=== PATIENT | male | born 1985 ===

== ENCOUNTER 2017-12-10 23:42 | Emergency (ER) | payer SELFPAY ==
--- NOTE | 2017-12-11 00:33 | ED PDOC ---
HPI: Psych/Substance Abuse Time Seen by Provider: 12/11/17 00:31 Chief Complaint (Nursing): Alcohol Ingestion Chief Complaint (Provider): ALCOHOL INGESTION History Per: Patient (32 Y/O MALE HERE FOR APPARENT ALCOHOL INTOXICATION. [facility] Past Medical History Reviewed: Historical Data, Nursing Documentation, Vital Signs Vital Signs: Last Vital Signs Temp 98.7 F 12/11/17 00:17 Pulse 68 12/11/17 00:17 Resp 16 12/11/17 00:17 BP 126/77 12/11/17 00:17 Pulse Ox 97 12/11/17 00:17 - Family History Family History: States: No Known Family Hx - Allergies Allergies/Adverse Reactions: Allergies Allergy/AdvReac Type Severity Reaction Status Date / Time No Known Allergies Allergy Verified 12/11/17 00:23 Review of Systems ROS Statement: Except As Marked, All Systems Reviewed And Found Negative Physical Exam - Reviewed Nursing Documentation Reviewed: Yes Vital Signs Reviewed: Yes - Physical Exam Appears: Positive for: Well, Non-toxic, No Acute Distress Head Exam: Positive for: ATRAUMATIC, NORMAL INSPECTION, NORMOCEPHALIC Skin: Positive for: Normal Color, Warm, DRY Eye Exam: Positive for: EOMI, Normal appearance, PERRL ENT: Positive for: Normal ENT Inspection Neck: Positive for: Normal, Painless ROM Cardiovascular/Chest: Positive for: Regular Rate, Rhythm Respiratory: Positive for: CNT, Normal Breath Sounds Gastrointestinal/Abdominal: Positive for: Normal Exam, Soft Back: Positive for: Normal Inspection Extremity: Positive for: Normal ROM Neurologic/Psych: Positive for: Alert, Oriented - ECG O2 Sat by Pulse Oximetry: 97 Disposition - Clinical Impression Clinical Impression: Alcohol ingestion - Patient ED Disposition Is Patient to be Admitted: No - Disposition Disposition: Routine/Home Disposition Time: 05:36 Condition: FAIR Instructions: Alcohol Poisoning (DC)
[2017-12-11 06:42] VITALS: BP 128/74; PULSE 72; RESP 17; TEMP 98.2; O2SAT 99
== END 2017-12-11 06:28 | disposition home or self-care (01) ==
LOC: H.ER 23:42
DX: F10.129 Alcohol abuse with intoxication, unspecified (principal)